=== PATIENT | female | born 1985 | race African-American/Black ===

== ENCOUNTER 2025-01-05 07:44 | Outpatient (REF) | payer OTHER, SELFPAY ==
--- NOTE | ~2025-01-05 | US_ITS ---
CLINICAL HISTORY: CHEST PAIN, R O GALLSTONES US abdomen complete. COMPARISON: None Technique: Real time sonographic imaging, including color-flow imaging, was performed by the dining services director. Multiple electroplating sales representative static images were saved for review. FINDINGS: The visualized aorta and inferior vena cava are normal caliber. The visualized portions of the pancreas appear normal. The liver has normal echotexture. Anechoic hepatic cysts measuring 0.6 x 0.6 cm in the right lobe. The main portal vein is antegrade. Liver, right lobe size: 14.2 cm, normal. The gallbladder is normal in size. No cholelithiasis or sludge identified. Sonographic Zamora's sign was not reported. Gallbladder wall: 1-2 mm, normal. Common bile duct: 3 mm, normal. Right kidney: Cortical medullary differentiation is maintained. No calculus or focal parenchymal abnormality identified. No hydronephrosis. Right kidney length: 10.2 cm Left kidney: Cortical medullary differentiation is maintained. No calculus or focal parenchymal abnormality identified. No hydronephrosis. Left kidney length: 10.1 cm The spleen has normal echogenicity. Splenic length: 6.9 cm, normal. No free intraperitoneal fluid identified. IMPRESSION: 1. No cause for patient's symptoms identified. No evidence of cholecystitis. No cholelithiasis. This document has been electronically signed by: Dwayne Solorio MD on 01/05/2025 16:16:30
== END 2025-01-05 07:45 | disposition home or self-care (01) ==
LOC: HO.UMASIMG 07:44
PROVIDERS: Visit Provider Family Medicine
DX: R07.9 Chest pain, unspecified (principal)
CPT/HCPCS: 76700

== ENCOUNTER → 2025-01-05 10:00 | Outpatient (BNV) | payer OTHER, SELFPAY | PROVIDERS: Visit Provider Radiology Diagnostic Radiology | DX: R07.9 Chest pain, unspecified (principal) | CPT/HCPCS: 76700 ==